=== PATIENT | male | born 1990 | race Caucasian/White ===

== ENCOUNTER 2016-09-20 17:56 | Emergency (ER) | payer SELFPAY ==
--- NOTE | 2016-09-20 20:10 | ER Document Report ---
ED Extremity Problem, Upper - General Mode of Arrival: Ambulatory Information source: Patient TRAVEL OUTSIDE OF THE [place] IN LAST 30 DAYS: No - HPI Onset: Other - see HPI note Associated symptoms: Back pain, Other - shoulder pain Similar symptoms previously: No Recently seen / treated by doctor: No - General Chief Complaint: Shoulder Pain Stated Complaint: LEFT SHOULDER PAIN Notes: Patient is a 26-year-old male presented emergency department for left shoulder pain and back pain. Patient states that he was doing a skateboard trick on his arms went up and had a pop. Patient states that he normally "throws" his arms up during a trick but this time he felt a pop with pain. Patient was given a sling for his arm in triage. Patient states that he also has some back pain throughout his back because he to his back about 6-7 months ago as described. Patient states she had multiple AC separations while he was sleeping in his shoulder. Patient has a history of asthma and takes albuterol occasionally. Patient states he has no primary care physician and has no insurance. (BEN MATIAS) - Related Data Allergies/Adverse Reactions: Penicillins Allergy (Verified 09/20/16 18:09) Past Medical History - General Information source: Patient - Social History Smoking Status: Current Every Day Smoker Chew tobacco use (# tins/day): No Frequency of alcohol use: None Drug Abuse: Marijuana Family History: None Patient has suicidal ideation: No Patient has homicidal ideation: No Pulmonary Medical History: Reports: Hx Asthma Neurological Medical History: Reports: Hx Migraine Past Surgical History: Reports: Hx Adenoidectomy, Hx Orthopedic Surgery - Left finger, Hx Tonsillectomy - and adenoids - Immunizations Immunizations up to date: Yes Hx Diphtheria, Pertussis, Tetanus Vaccination: Yes Review of Systems - Review of Systems Constitutional: No symptoms reported EENT: No symptoms reported Cardiovascular: No symptoms reported Respiratory: No symptoms reported Gastrointestinal: No symptoms reported Genitourinary: No symptoms reported Male Genitourinary: No symptoms reported Musculoskeletal: See HPI Skin: No symptoms reported Hematologic/Lymphatic: No symptoms reported Neurological/Psychological: No symptoms reported -: Yes All other systems reviewed and negative Physical Exam - Vital signs Interpretation: Normal - General General appearance: Appears well, Alert In distress: Mild - HEENT Head: Normocephalic, Atraumatic Eyes: Normal Pupils: PERRL Mucous membranes: Moist - Respiratory Respiratory status: No respiratory distress Chest status: Nontender Breath sounds: Normal Chest palpation: Normal - Cardiovascular Rhythm: Regular Heart sounds: Normal auscultation Murmur: No - Abdominal Inspection: Normal Distension: No distension Bowel sounds: Normal Tenderness: Nontender Organomegaly: No organomegaly - Back Back: Normal, Tender - Paralumbar muscle tenderness - Extremities General upper extremity: Normal inspection, Normal ROM, Normal strength General lower extremity: Normal inspection, Normal ROM, Normal strength - Neurological Neuro grossly intact: Yes Cognition: Normal Orientation: AAOx4 [place] Coma Scale Eye Opening: Spontaneous [place] Coma Scale Verbal: Oriented Sohail Coma Scale Motor: Obeys Commands [place] Coma Scale Total: 15 Speech: Normal - Psychological Associated symptoms: Normal affect, Normal mood - Skin Skin Temperature: Warm Skin Moisture: Dry - Vital signs Vitals: Temp Pulse Resp BP Pulse Ox 98 F 80 16 122/83 100 09/20/16 18:09 09/20/16 18:09 09/20/16 18:09 09/20/16 18:09 09/20/16 18:09 - Neurological Notes: Good reflexes, pulses and sensation (BEN MATIAS) Course - Re-evaluation Re-evalutation: 09/20/16 21:02 Patient presents emergency from a chief plain chronic back pain no new injury says been going on for a year paralumbar muscular skeletal tenderness not midline no loss of bowel or bladder function normal examination. Also says he stretched his arm out on his left shoulder and he feels little bit of pain in that area it's not clinically dislocated he didn't fall or have any associated trauma radial ulnar x-ray median nerve are intact pulses sensation motor intact. Patient has a history of before meals separation without repair. X-rays obtained can go ahead and give him a primary care physician follow-up Tylenol Motrin for discomfort and discussed reasons for ED return sooner (DORITA NAVARRO) - Vital Signs Vital signs: Temp Pulse Resp BP Pulse Ox 98.4 F 78 16 116/85 99 09/20/16 21:23 09/20/16 21:23 09/20/16 21:23 09/20/16 21:23 09/20/16 21:23 Discharge - Discharge Clinical Impression: chronic back pain, left shoulder strain Condition: Stable Disposition: HOME, SELF-CARE Additional Instructions: Chronic Back Pain Chronic back pain (pain persisting longer than three months) is a common problem. A medical evaluation can look for herniated disc, arthritis, osteoporosis, tumors, and infections. But at least half the time, there's no obvious treatable cause. Anxiety and depression tend to worsen back pain. Ibuprofen or other anti-inflammatory medicine can help. A heating pad, used for 15-20 minutes at a time, can ease pain. For this type of back pain, narcotic medicines should be avoided. Muscle relaxers are rarely helpful unless you're having spasms. Activity is important. Find an aerobic exercise program that your back can tolerate. Too much rest makes back pain worse. Specific back exercises are usually prescribed to strengthen the back and abdominal muscles. Often, a physical therapist can help. Avoid heavy lifting, working while bent over, or standing with both knees straight. Most back pain patients do better with a firm mattress. If new symptoms of a "herniated disc" (radiation of pain, numbness, or tingling down the back of the leg or weakness in the leg) occur, you should be re-examined. Shoulder Injury You have injured your shoulder. This usually results from stretching or tearing of the tendons during trauma. Time and protection are required in order to heal properly. Many injuries are quite disabling, and should be taken seriously. Initial treatment includes cold packs and a sling to rest the shoulder. The physician has assessed the seriousness of your injury, and has outlined a treatment plan. Understand that this treatment may change, depending on how you progress. If a re-examination was recommended, it is important that you follow up as instructed. Some shoulder injuries (such as partial tear of the rotator cuff) are only suspected after you've failed to improve. Call us if there's severe pain, numbness, or loss of function. Referrals: [facility] [Provider Group] (call for an appointment to be seen in 3-5 days return for increasing worsening or new symptoms) Scribe Attestation: 09/20/16 21:02 I personally performed the services described in the documentation reviewed the documentation recorded by the scribe in my presence and it accurately incompletely records my words and actions (DORITA NAVARRO) Scribe Documentation - Scribe Written by Akil:: Ben Matias 09/20/16 20:28 acting as scribe for :: Naresh
[2016-09-20] MEDS ORDERED: IBUPROFEN 800 MG TABLET ONE (21:28)
[2016-09-20 21:36] VITALS: BP 116/85
== END 2016-09-20 21:25 | disposition home or self-care (01) ==
LOC: ER 17:56
DX: S46.912A Strain of unspecified muscle, fascia and tendon at shoulder and upper arm level, left arm, initial encounter (principal); X58.XXXA Exposure to other specified factors, initial encounter; Y93.51 Activity, roller skating (inline) and skateboarding; Y92.9 Unspecified place or not applicable; M54.5 Low back pain; M25.512 Pain in left shoulder; J45.909 Unspecified asthma, uncomplicated; Z88.0 Allergy status to penicillin; F17.210 Nicotine dependence, cigarettes, uncomplicated; F12.10 Cannabis abuse, uncomplicated
CPT/HCPCS: 99283

== ENCOUNTER 2016-11-03 17:07 | Emergency (ER) | payer SELFPAY ==
--- NOTE | 2016-11-03 18:42 | ER Document Report ---
ED Psych Disorder / Suicide - General Mode of Arrival: Ambulatory Information source: Patient, Parent TRAVEL OUTSIDE OF THE [place] IN LAST 30 DAYS: No - HPI Patient complains to provider of: Suicidal ideation Onset: Other - Refer to HPI notes Similar symptoms previously: No Recently seen / treated by doctor: No <BEN BERMUDEZ - Last Filed: 11/03/16 21:11> <AIMEE LEMUS - Last Filed: 11/03/16 23:25> - General Chief Complaint: Suicidal Ideation Stated Complaint: PSYCH EVAL Time Seen by Provider: 11/03/16 17:14 Notes: Patient is a 26 year old male presenting to the emergency department for suicidal ideation. Patient has had increased depression and suicidal thoughts. Patient is present with his mother in the room who states he punched the ground. Patient denies any suicidal attempt or plan. Patient states if he did commit suicide he would do "whatever comes naturally." Patient has been drinking EtOH recently. Patient also does marijuana and he states it makes things better for him. Patient also has some nausea. Patient denies taking any new medications. Patient has been seen at a mental hospital before for therapy when he was younger. (BEN BERMUDEZ) - Related Data Allergies/Adverse Reactions: Penicillins Allergy (Verified 11/03/16 17:12) Past Medical History - General Information source: Patient - Social History Smoking Status: Never Smoker Cigarette use (# per day): No Frequency of alcohol use: Occasional Drug Abuse: Marijuana Family History: None Patient has suicidal ideation: Yes Patient has homicidal ideation: No Pulmonary Medical History: Reports: Hx Asthma Neurological Medical History: Reports: Hx Migraine Psychiatric Medical History: Reports: Hx Depression Past Surgical History: Reports: Hx Adenoidectomy, Hx Orthopedic Surgery - Left finger, Hx Tonsillectomy - and adenoids - Immunizations Immunizations up to date: Yes Hx Diphtheria, Pertussis, Tetanus Vaccination: Yes <BEN BERMUDEZ - Last Filed: 11/03/16 21:11> Review of Systems - Review of Systems Constitutional: No symptoms reported EENT: No symptoms reported Cardiovascular: No symptoms reported Respiratory: No symptoms reported Gastrointestinal: No symptoms reported Genitourinary: No symptoms reported Male Genitourinary: No symptoms reported Musculoskeletal: No symptoms reported Skin: No symptoms reported Hematologic/Lymphatic: No symptoms reported Neurological/Psychological: See HPI -: Yes All other systems reviewed and negative <BEN BERMUDEZ - Last Filed: 11/03/16 21:11> Physical Exam - Vital signs Interpretation: Normal - General General appearance: Appears well, Alert - HEENT Head: Normocephalic, Atraumatic Eyes: Normal Pupils: PERRL - Respiratory Respiratory status: No respiratory distress Chest status: Nontender Breath sounds: Normal Chest palpation: Normal - Cardiovascular Rhythm: Regular Heart sounds: Normal auscultation Murmur: No - Abdominal Inspection: Normal Distension: No distension Bowel sounds: Normal Tenderness: Nontender Organomegaly: No organomegaly - Back Back: Normal, Nontender - Extremities General upper extremity: Normal inspection, Nontender, Normal color, Normal ROM , Normal temperature General lower extremity: Normal inspection, Nontender, Normal color, Normal ROM , Normal temperature, Normal weight bearing. No: Noel's sign - Neurological Neuro grossly intact: Yes Cognition: Normal Orientation: AAOx4 Collins Coma Scale Eye Opening: Spontaneous Sohail Coma Scale Verbal: Oriented Sohail Coma Scale Motor: Obeys Commands Collins Coma Scale Total: 15 Speech: Normal Motor strength normal: LUE, RUE, LLE, RLE Sensory: Normal - Psychological Associated symptoms: Other - suicidal, no plan - Skin Skin Temperature: Warm Skin Moisture: Dry Skin Color: Normal <AIMEE LEMUS - Last Filed: 11/03/16 23:25> - Vital signs Vitals: Temp Pulse Resp BP Pulse Ox 98.2 F 73 15 124/94 H 96 11/03/16 17:12 11/03/16 17:12 11/03/16 17:12 11/03/16 17:12 11/03/16 17:12 Course <BEN BERMUDEZ - Last Filed: 11/03/16 21:11> <AIMEE LEMUS - Last Filed: 11/03/16 23:25> - Re-evaluation Re-evalutation: 11/03/16 Patient is a 26-year-old male who comes in stating that he is suicidal but does not have a plan. Patient is medically stable. He has been evaluated by mental health services who feels that the patient has underlying bipolar disorder. Recommend that he be started on Zyprexa twice a day and has been given resources to follow-up with outpatient mental health. Mother will contract for safety. Patient and mother agree with this plan. Stable at this time for discharge. Return immediately if any worsening or concerning symptoms. Understand and agree with plan. (AIMEE LEMUS) - Vital Signs Vital signs: Temp Pulse Resp BP Pulse Ox 98.4 F 75 16 118/84 100 11/03/16 21:14 11/03/16 21:14 11/03/16 21:14 11/03/16 21:14 11/03/16 21:14 Discharge <BEN BERMUDEZ - Last Filed: 11/03/16 21:11> <AIMEE LEMUS - Last Filed: 11/03/16 23:25> - Discharge Clinical Impression: Suicidal ideation Bipolar disorder Qualifiers: Active/Remission status: currently active Current bipolar episode type: mixed Current episode severity: unspecified Qualified Code(s): F31.60 - Bipolar disorder, current episode mixed, unspecified Condition: Stable Disposition: HOME, SELF-CARE Instructions: Bipolar Disorder (OM), Suicidal Ideation (OM) Additional Instructions: Please follow-up with [facility] human services tomorrow. Please return if you have any worsening symptoms or further concerns. Prescriptions: Olanzapine [Zyprexa 2.5 Mg Tablet] 2.5 mg PO BID #14 tablet Forms: Return to Work Scribe Attestation: 11/03/16 23:25 I personally performed the services described in the documentation, reviewed and edited the documentation which was dictated to the scribe in my presence, and it accurately records my words and actions. (AIMEE LEMUS) Scribe Documentation - Scribe Written by Akil:: Akil Seals, 11/03/16 20:59 acting as scribe for :: Akin <BEN BERMUDEZ - Last Filed: 11/03/16 21:11>
[2016-11-03 19:49] LABS: APPEARANCE,URINE CLEAR; BILIRUBIN,URINE NEGATIVE (NEGATIVE); GLUCOSE, URINE NEGATIVE (NEGATIVE); KETONES,URINE NEGATIVE (NEGATIVE); LEUKOCYTE ESTERASE,URINE NEGATIVE (NEGATIVE); NITRITE,URINE NEGATIVE (NEGATIVE); PROTEIN,URINE NEGATIVE (NEGATIVE); URINE SPECIFIC GRAVITY 1.005; UROBILINOGEN,URINE NEGATIVE mg/dL (<2.0)
[2016-11-03 20:03] LABS: URINE BARBITURATES SCREEN NEGATIVE; URINE METHADONE SCREEN NEGATIVE; URINE OPIATES LOW NEGATIVE; URINE PHENCYCLIDINE SCREEN NEGATIVE
[2016-11-03] MEDS ORDERED: OLANZAPINE 2.5 MG TABLET PO ONE (20:33)
[2016-11-03 21:20] VITALS: BP 118/84
--- NOTE | 2016-11-04 09:42 | EKG REPORT ---
SEVERITY:- BORDERLINE ECG - SINUS RHYTHM BORDERLINE T ABNORMALITIES, ANT-LAT LEADS : Confirmed by: Guadalupe Camacho 04-Nov-2016 09:41:56
== END 2016-11-03 21:20 | disposition home or self-care (01) ==
LOC: ER 17:07
DX: F31.60 Bipolar disorder, current episode mixed, unspecified (principal); R45.851 Suicidal ideations; R11.0 Nausea; J45.909 Unspecified asthma, uncomplicated; Z88.0 Allergy status to penicillin
CPT/HCPCS: 93005; 99285; 81001; 80307; 93010; J3490

== ENCOUNTER 2017-06-14 12:50 | Emergency (ER) | payer OTHER ==
[2017-06-14 12:55] VITALS: BP 117/75
--- NOTE | 2017-06-14 13:38 | ER Document Report ---
ED Skin Rash/Insect Bite/Abscs - General Mode of Arrival: Ambulatory Information source: Patient TRAVEL OUTSIDE OF THE [place] IN LAST 30 DAYS: No - General Chief Complaint: Skin Problem Stated Complaint: RIGHT ARM INJURY Time Seen by Provider: 06/14/17 13:35 Notes: Patient is a 26-year-old male that presents to the emergency department today with complaints of bites to his right arm with associated swelling and erythema. 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 Patient states he assumes that there was some sort of insect in the right glove. He does not have any other proctor on his other arm or the rest of his body. Patient states he tried Benadryl with minimal relief. (WILI LOVE) - Related Data Allergies/Adverse Reactions: Penicillins Allergy (Verified 11/03/16 17:12) Past Medical History - General Information source: Patient - Social History Smoking Status: Current Every Day Smoker Cigarette use (# per day): Yes Frequency of alcohol use: None Drug Abuse: None Lives with: Family Family History: Reviewed & Not Pertinent Pulmonary Medical History: Reports: Hx Asthma Neurological Medical History: Reports: Hx Migraine Psychiatric Medical History: Reports: Hx Depression Past Surgical History: Reports: Hx Adenoidectomy, Hx Orthopedic Surgery - Left finger, Hx Tonsillectomy - and adenoids - Immunizations Immunizations up to date: Yes Hx Diphtheria, Pertussis, Tetanus Vaccination: Yes Review of Systems - Review of Systems Constitutional: No symptoms reported EENT: No symptoms reported Cardiovascular: No symptoms reported Respiratory: No symptoms reported Gastrointestinal: No symptoms reported Genitourinary: No symptoms reported Male Genitourinary: No symptoms reported Musculoskeletal: No symptoms reported Skin: See HPI, Rash - right forearm Hematologic/Lymphatic: No symptoms reported Neurological/Psychological: No symptoms reported -: Yes All other systems reviewed and negative Physical Exam - Vital signs Vitals: Temp Pulse Resp BP Pulse Ox 98.1 F 88 14 117/75 98 06/14/17 12:54 06/14/17 12:54 06/14/17 12:54 06/14/17 12:54 06/14/17 12:54 - Notes Notes: Physical Exam: General: Alert, appears well. HEENT: Normocephalic. Atraumatic. PERRLA. Extraocular movements intact. Oropharynx clear. Neck: Supple. Respiratory: No respiratory distress. Abdominal: Normal Inspection. No distension. Extremities: Moves all four extremities. Neurological: Cranial nerves II-XII grossly intact bilaterally. Normal cognition. AAOx4. Normal speech. Psychological: Normal affect. Normal Mood. Skin: 5mm macular papular areas over right forearm with central scabbed area with excoriations. Mild generalized associated erythema. No excessive warmth. No axillary adenopathy. Left arm was not involved. (WILI LOVE) - Vital Signs Vital signs: Temp Pulse Resp BP Pulse Ox 98.1 F 88 14 117/75 98 06/14/17 12:54 06/14/17 12:54 06/14/17 12:54 06/14/17 12:54 06/14/17 12:54 Discharge - Discharge Clinical Impression: Rash and nonspecific skin eruption Condition: Good Disposition: HOME, SELF-CARE Additional Instructions: May use the Atarax for itching if the Benadryl does not seem to be helping. It will probably cause some sedation. Start the prednisone which is the steroid tomorrow. Return for fever, worsening otherwise. Prescriptions: Hydroxyzine HCl [Atarax 25 mg Tablet] 1 - 2 tab PO QID PRN #25 tablet PRN Reason: Prednisone [Deltasone 20 mg Tablet] 2 tab PO DAILY 5 Days #10 tablet Scribe Documentation - Scribe Written by Akil:: Akil Lopez, 06/14/2017 1545 acting as scribe for :: Carolina
[2017-06-14] MEDS ORDERED: PREDNISOLONE SOD PHOS 15 MG/5 ML ORAL SYRING PO ONE (13:41)
[2017-06-14] MEDS ORDERED: PREDNISONE 20 MG TABLET PO ONE (13:46)
== END 2017-06-14 13:52 | disposition home or self-care (01) ==
LOC: ER 12:50
DX: R21 Rash and other nonspecific skin eruption (principal); S49.91XA Unspecified injury of right shoulder and upper arm, initial encounter; M79.89 Other specified soft tissue disorders; W57.XXXA Bitten or stung by nonvenomous insect and other nonvenomous arthropods, initial encounter; F17.210 Nicotine dependence, cigarettes, uncomplicated
CPT/HCPCS: 99283; J7512

== ENCOUNTER 2017-07-18 17:55 | Emergency (ER) | payer SELFPAY ==
[2017-07-18 18:01] VITALS: BP 114/73
[2017-07-18] MEDS ORDERED: FAMOTIDINE 20 MG TABLET PO ONE (18:28)
[2017-07-18] MEDS ORDERED: PREDNISONE 20 MG TABLET PO ONE (18:28)
[2017-07-18] MEDS ORDERED: DIPHENHYDRAMINE HCL 50 MG CAPSULE PO ONE (18:28)
--- NOTE | 2017-07-18 19:10 | ER Document Report ---
ED Skin Rash/Insect Bite/Abscs - General Chief Complaint: Insect Bite Stated Complaint: ARM SWELLING Time Seen by Provider: 07/18/17 18:25 Mode of Arrival: Ambulatory Information source: Patient Notes: Patient is a 26-year-old male who presents to the ER today for redness and swelling to his right forearm after being bitten by something yesterday at work. Patient states that he sometimes has reactions like this whenever he is bitten by insects. He did not see what bit him. He denies any drainage, bleeding, difficulty breathing, feeling of his throat closing up, fevers or chills. TRAVEL OUTSIDE OF THE [place] IN LAST 30 DAYS: No - Related Data Allergies/Adverse Reactions: Penicillins Allergy (Verified 07/18/17 17:59) Past Medical History - General Information source: Patient - Social History Smoking Status: Unknown if Ever Smoked Family History: Reviewed & Not Pertinent Patient has suicidal ideation: No Patient has homicidal ideation: No Pulmonary Medical History: Reports: Hx Asthma Neurological Medical History: Reports: Hx Migraine Renal/ Medical History: Denies: Hx Peritoneal Dialysis Psychiatric Medical History: Reports: Hx Depression Past Surgical History: Reports: Hx Adenoidectomy, Hx Orthopedic Surgery - Left finger, Hx Tonsillectomy - and adenoids - Immunizations Immunizations up to date: Yes Hx Diphtheria, Pertussis, Tetanus Vaccination: Yes Review of Systems - Review of Systems Constitutional: No symptoms reported EENT: No symptoms reported Cardiovascular: No symptoms reported Respiratory: No symptoms reported Gastrointestinal: No symptoms reported Genitourinary: No symptoms reported Male Genitourinary: No symptoms reported Musculoskeletal: No symptoms reported Skin: See HPI Hematologic/Lymphatic: No symptoms reported Neurological/Psychological: No symptoms reported Physical Exam - Vital signs Vitals: Temp Pulse Resp BP Pulse Ox 97.8 F 64 14 114/73 99 07/18/17 18:00 07/18/17 18:00 07/18/17 18:00 07/18/17 18:00 07/18/17 18:00 - Notes Notes: PHYSICAL EXAMINATION: GENERAL: Well-appearing and in no acute distress. HEAD: Atraumatic, normocephalic. EYES: Pupils equal round and reactive to light, extraocular movements intact, sclera anicteric, conjunctiva are normal. ENT: ear canals without erythema or foreign body, TMs pearly hassan with good bony landmarks, nares patent, oropharynx clear without exudates. Moist mucous membranes. Airway patent NECK: Normal range of motion, supple without lymphadenopathy LUNGS: CTAB and equal. No wheezes rales or rhonchi. HEART: Regular rate and rhythm without murmurs EXTREMITIES: Normal range of motion, no pitting edema. No cyanosis. NEUROLOGICAL: Cranial nerves grossly intact. Normal sensory/motor exams. PSYCH: Normal mood, normal affect. SKIN: Warm, Dry, normal turgor, erythema and mild edema to the dorsal right forearm approximately 7 cm x 4 cm in diameter, nontender to palpation, not fluctuant or indurated Course - Re-evaluation Re-evalutation: 07/18/17 19:07 Patient given Benadryl, Pepcid and prednisone here in the emergency department - Vital Signs Vital signs: Temp Pulse Resp BP Pulse Ox 97.8 F 64 14 114/73 99 07/18/17 18:00 07/18/17 18:00 07/18/17 18:00 07/18/17 18:00 07/18/17 18:00 Discharge - Discharge Clinical Impression: Allergy, insect bite Condition: Stable Disposition: HOME, SELF-CARE Additional Instructions: Return immediately for any new or worsening symptoms. Follow up with primary care provider, call tomorrow to make followup appointment. Prescriptions: Prednisone 40 mg PO DAILY #10 tablet Forms: Return to Work
== END 2017-07-18 19:21 | disposition home or self-care (01) ==
LOC: ER 17:55
DX: S50.861A Insect bite (nonvenomous) of right forearm, initial encounter (principal); M79.89 Other specified soft tissue disorders; W57.XXXA Bitten or stung by nonvenomous insect and other nonvenomous arthropods, initial encounter
CPT/HCPCS: 99281; J7512

== ENCOUNTER 2017-12-08 18:23 | Emergency (ER) | payer SELFPAY ==
[2017-12-08 18:32] VITALS: BP 118/86
--- NOTE | 2017-12-08 19:51 | ER Document Report ---
ED General - General Chief Complaint: Hand Injury Stated Complaint: RIGHT HAND PAIN TRAVEL OUTSIDE OF THE [place] IN LAST 30 DAYS: No - HPI Notes: 27-year-old right-handed male presents with right hand injury. Patient indicates that he got angry earlier today punched a wall. Complains of sudden onset severe right hand pain and swelling. Nonradiating. No other modifying factors, no other associated symptoms, no other provocative or palliative factors. Plain films are obtained, there is no evidence of fracture. Discharged home with advice to use ibuprofen and Tylenol, return if worsening. - Related Data Allergies/Adverse Reactions: Penicillins Allergy (Verified 12/08/17 18:26) Past Medical History - Social History Smoking Status: Smoker,Current Status Unk Family History: Reviewed & Not Pertinent - Medical History Medical History: Negative Pulmonary Medical History: Reports: Hx Asthma Neurological Medical History: Reports: Hx Migraine Renal/ Medical History: Denies: Hx Peritoneal Dialysis Psychiatric Medical History: Reports: Hx Depression Past Surgical History: Reports: Hx Adenoidectomy, Hx Orthopedic Surgery - Left finger, Hx Tonsillectomy - and adenoids - Immunizations Immunizations up to date: Yes Hx Diphtheria, Pertussis, Tetanus Vaccination: Yes Review of Systems - Review of Systems Notes: Review of systems as in history of present illness, otherwise no significant headache, chest pain, abdominal pain. Physical Exam - Vital signs Vitals: Temp Pulse Resp BP Pulse Ox 98.8 F 70 16 118/86 H 100 12/08/17 18:30 12/08/17 18:30 12/08/17 18:30 12/08/17 18:30 12/08/17 18:30 - Notes Notes: General: Well devloped, no acute distress. HEENT: Normocephalic, atraumatic. Pupils equal round reactive to light. Mucosa moist. No JVD. Chest: No trauma, normal excursion. Respiratory: Good air exchange, normal excursion. Cardiac: Regular rhythm Abdomen: Soft, benign. Nondistended. Back: No asymmetry or gross abnormality. Motor: Grossly normal power and tone. Neurologic: Alert, nonfocal. Vascular: Well perfused Skin: No petechiae or purpura Extremities: Left dorsal ulnar aspect of the hand is edematous and bruised and tender. Range of motion limited. He is able to appose his thumb and fifth finger Course - Re-evaluation Re-evalutation: 12/08/17 19:49 [id number] male with high risk for boxer's fracture. We will proceed with plain films, reevaluate. - Vital Signs Vital signs: Temp Pulse Resp BP Pulse Ox 98.8 F 70 16 118/86 H 100 12/08/17 18:30 12/08/17 18:30 12/08/17 18:30 12/08/17 18:30 12/08/17 18:30 Discharge - Discharge Clinical Impression: Hand contusion Qualifiers: Encounter type: initial encounter Laterality: right Qualified Code(s): S60.221A - Contusion of right hand, initial encounter Condition: Good Disposition: HOME, SELF-CARE
--- NOTE | 2017-12-08 20:05 | RADIOLOGY REPORT (SQ) ---
EXAM DESCRIPTION: HAND RIGHT 3 VIEWS COMPLETED DATE/TIME: 12/08/2017 7:57 pm REASON FOR STUDY: Trauma punched a table COMPARISON: None. EXAM PARAMETERS: NUMBER OF VIEWS: Three views. TECHNIQUE: AP, lateral and oblique radiographic images acquired of the right hand. LIMITATIONS: None. FINDINGS: MINERALIZATION: Normal. BONES: No acute fracture or dislocation. No worrisome bone lesions. JOINTS: No effusions. SOFT TISSUES: Dorsal soft tissue swelling. OTHER: No other significant finding. IMPRESSION: Soft tissue swelling. No acute fracture. TECHNICAL DOCUMENTATION: JOB ID: [id number] [employer]- All Rights Reserved Reading location - IP/workstation name: [email or web address]
== END 2017-12-08 20:34 | disposition home or self-care (01) ==
LOC: ER 18:23
DX: S60.221A Contusion of right hand, initial encounter (principal); W22.01XA Walked into wall, initial encounter; W22.03XA Walked into furniture, initial encounter; Z88.0 Allergy status to penicillin; J45.909 Unspecified asthma, uncomplicated
CPT/HCPCS: 99283

== ENCOUNTER 2018-03-04 15:55 | Emergency (ER) | payer SELFPAY ==
[2018-03-04] MEDS ORDERED: ONDANSETRON 4 MG TAB.RAPDIS PO ONE (16:25)
[2018-03-04] MEDS ORDERED: METOCLOPRAMIDE HCL ORAL SOLN 10 MG/10 ML UDCUP PO ONE (17:00)
[2018-03-04] MEDS ORDERED: MAG HYDROX/AL HYDROX/SIMETH SUSP 30 ML UDCUP PO ONE (17:00)
[2018-03-04] MEDS ORDERED: LIDOCAINE 2% VISCOUS SOLN 20 ML UDCUP PO ONE (17:00)
--- NOTE | 2018-03-04 17:29 | ER Document Report ---
ED Medical Screen (RME) - General Chief Complaint: Vomiting Stated Complaint: VOMITING, NAUSEA Time Seen by Provider: 03/04/18 16:08 TRAVEL OUTSIDE OF THE [place] IN LAST 30 DAYS: No - HPI Patient complains to provider of: Vomiting Onset: Other - 27-year-old without significant past medical history presents for recurrent vomiting and abdominal pain in the left upper quadrant. Is never had anything like this in the past. Is been smoking cannabis to try and help with his symptoms which does offer some relief. Denies fevers or chills pain elsewhere diarrhea or other symptoms. - Related Data Allergies/Adverse Reactions: Penicillins Allergy (Verified 03/04/18 16:10) Past Medical History - Social History Chew tobacco use (# tins/day): No Frequency of alcohol use: Occasional Drug Abuse: Marijuana Pulmonary Medical History: Reports: Hx Asthma Neurological Medical History: Reports: Hx Migraine Renal/ Medical History: Denies: Hx Peritoneal Dialysis Psychiatric Medical History: Reports: Hx Depression Past Surgical History: Reports: Hx Adenoidectomy, Hx Orthopedic Surgery - Left finger, Hx Tonsillectomy - and adenoids - Immunizations Immunizations up to date: Yes Hx Diphtheria, Pertussis, Tetanus Vaccination: Yes Physical Exam - Vital signs Vitals: Temp Pulse Resp BP Pulse Ox 97.7 F 68 16 127/75 H 100 03/04/18 16:01 03/04/18 16:01 03/04/18 16:01 03/04/18 16:01 03/04/18 16:01 Course - Re-evaluation Re-evalutation: 03/04/18 17:28 This 27-year-old man has a benign abdominal examination. He is got pain in the left upper quadrant. Given that he has had recurrent vomiting will attempt administration of antiemetic followed by administration of GI cocktail as he likely has gastritis and reflux gastritis as a result of his vomiting. We will defer to secondary provider pending p.o. challenge.I performed a rapid medical screening examination on this patient will defer further disposition determination workup and labs to next provider. - Vital Signs Vital signs: Temp Pulse Resp BP Pulse Ox 97.7 F 68 16 127/75 H 100 03/04/18 16:01 03/04/18 16:01 03/04/18 16:01 03/04/18 16:01 03/04/18 16:01
--- NOTE | 2018-03-04 17:33 | ER Document Report ---
HPI - HPI Patient complains to provider of: vomiting and diarrrhea Onset: Yesterday Onset/Duration: Gradual Quality of pain: Cramping Pain Level: 4 Context: Patient presents complaining of nausea and vomiting diarrhea that started yesterday. Patient states he is vomited once today and had diarrhea x2 episodes. Patient does complain of generalized abdominal cramping. Patient denies any fever. Patient reports multiple family members in the household with similar symptoms. Associated Symptoms: Diarrhea, Nausea, Vomiting. denies: Nonproductive cough, Productive cough, Fever Exacerbated by: Denies Relieved by: Denies Similar symptoms previously: No Recently seen / treated by doctor: No - ROS ROS below otherwise negative: Yes Systems Reviewed and Negative: Yes All other systems reviewed and negative - CONSTITUTIONAL Constitutional: DENIES: Fever, Chills - NEURO Neurology: DENIES: Headache - GASTROINTESTINAL Gastrointestinal: REPORTS: Abdominal Pain, Nausea, Patient vomiting, Diarrhea. DENIES: Constipation, Black / Bloody Stools - URINARY Urinary: DENIES: Dysuria - DERM Skin Color: Normal, [place] Skin Problems: None Past Medical History - General Information source: Patient - Social History Smoking Status: Current Every Day Smoker Chew tobacco use (# tins/day): No Smoking Education Provided: Yes Frequency of alcohol use: Occasional Drug Abuse: Marijuana Occupation: Foodservice Lives with: Family Family History: Reviewed & Not Pertinent Patient has suicidal ideation: No Patient has homicidal ideation: No Pulmonary Medical History: Reports: Hx Asthma Neurological Medical History: Reports: Hx Migraine Renal/ Medical History: Denies: Hx Peritoneal Dialysis Psychiatric Medical History: Reports: Hx Depression Past Surgical History: Reports: Hx Adenoidectomy, Hx Orthopedic Surgery - Left finger, Hx Tonsillectomy - and adenoids - Immunizations Immunizations up to date: Yes Hx Diphtheria, Pertussis, Tetanus Vaccination: Yes Vertical Provider Document - CONSTITUTIONAL Agree With Documented VS: Yes Exam Limitations: No Limitations General Appearance: WD/WN, No Apparent Distress - INFECTION CONTROL TRAVEL OUTSIDE OF THE [place] IN LAST 30 DAYS: No - HEENT HEENT: Atraumatic, Normocephalic - NECK Neck: Normal Inspection, Supple. negative: Lymphadenopathy-Left, Lymphadenopathy-Right - RESPIRATORY Respiratory: Breath Sounds Normal, No Respiratory Distress, Chest Non-Tender. negative: Rhonchi, Wheezing - CARDIOVASCULAR Cardiovascular: Regular Rate, Regular Rhythm, No Murmur - GI/ABDOMEN Gastrointestinal: Abdomen Soft, Abdomen Tender - LUQ, No Organomegaly, Normal Bowel Sounds - BACK Back: Normal Inspection. negative: CVA Tenderness-Right, CVA Tenderness-Left - MUSCULOSKELETAL/EXTREMETIES Musculoskeletal/Extremeties: MAEW, FROM, Non-Tender - NEURO Level of Consciousness: Awake, Alert, Appropriate Motor/Sensory: No Motor Deficit - DERM Integumentary: Warm, Dry, No Rash Course - Re-evaluation Re-evalutation: 03/04/18 18:12 Patient reports nausea is improved after medication. Patient tolerating oral fluids. Patient nontoxic in appearance. Patient does report multiple family members with similar symptoms at home. Patient presents with abdominal pain without signs of peritonitis or other life-threatening or serious etiology. Patient appears stable for discharge and has been instructed to return immediately if the symptoms worsen in any way, or in 8-12 hours if not improved for reevaluation. The patient has been instructed to return if the symptoms worsen or change in any way. - Vital Signs Vital signs: Temp Pulse Resp BP Pulse Ox 97.7 F 68 16 127/75 H 100 03/04/18 16:01 03/04/18 16:01 03/04/18 16:01 03/04/18 16:01 03/04/18 16:01 Discharge - Discharge Clinical Impression: Nausea vomiting and diarrhea Condition: Stable Disposition: HOME, SELF-CARE Instructions: Antinausea Medication ([facility]), Diarrhea, Nonspecific ([facility]), Vomiting ([facility]) Additional Instructions: Return immediately for any new or worsening symptoms Followup with your primary care provider, call tomorrow to make a followup appointment Prescriptions: Ondansetron HCl [Zofran 4 mg Tablet] 1 - 2 tab PO Q6 PRN #12 tablet PRN Reason: Forms: Smoking Cessation Education, Return to Work Referrals: [facility] [Provider Group] - Follow up as needed
[2018-03-04 18:25] VITALS: BP 125/70
== END 2018-03-04 18:24 | disposition home or self-care (01) ==
LOC: ER 15:55
DX: R11.2 Nausea with vomiting, unspecified (principal); R19.7 Diarrhea, unspecified; R10.84 Generalized abdominal pain; F17.200 Nicotine dependence, unspecified, uncomplicated
CPT/HCPCS: 99283; S0119; J3490

== ENCOUNTER 2018-05-06 20:11 | Emergency (ER) | payer SELFPAY ==
--- NOTE | 2018-05-06 21:03 | EKG REPORT ---
SEVERITY:- BORDERLINE ECG - WANDERING ATRIAL PACEMAKER : Confirmed by: Kelli Machuca MD 06-May-2018 21:01:31
[2018-05-06 21:33] LABS: ABSOLUTE BASOPHILS # (AUTO) 0.1 10^3/uL (0.0-0.2); ABSOLUTE MONOCYTES (AUTO) 0.5 10^3/uL (0.1-1.4); ABSOLUTE NEUT (AUTO) 4.8 10^3/uL (1.7-8.2); BASOPHILS % (AUTO) 0.7 % (0-2); EOSINOPHILS % (AUTO) 0.3 % (0-6); HEMATOCRIT 46.2 % (37.9-51.0); HEMOGLOBIN 15.9 g/dL (13.5-17.0); MEAN CORPUSCULAR HEMOGLOBIN 32.4 pg (27.0-33.4); MEAN CORPUSCULAR HGB CONC 34.5 g/dL (32.0-36.0); MEAN CORPUSCULAR VOLUME 94 fl (80-97); MONOCYTES % (AUTO) 5.5 % (3-13); PLATELET COUNT 167 10^3/uL (150-450); RED BLOOD COUNT 4.93 10^6/uL (4.35-5.55); RED CELL DISTRIBUTION WIDTH 13.5 % (11.5-14.0); SEGMENTED NEUTROPHILS % (AUTO) 57.5 % (42-78); TOTAL CELLS COUNTED % (AUTO) 100 %; WHITE BLOOD COUNT 8.3 10^3/uL (4.0-10.5)
--- NOTE | 2018-05-06 21:39 | ER Document Report ---
ED Syncope and Near Syncope - General Chief Complaint: Passed Out Prior to Arrival Stated Complaint: PASSING OUT Time Seen by Provider: 05/06/18 21:10 Notes: This is a 27-year-old male history of anxiety who was making pizzas at [employer] when he felt like he was about to pass out. States that he was taking some big deep breaths. Began having numbness to his face and extremities. Laid down on the ground. Thinks that he may have blacked out. Feels better at this time. Ambulance was called. Patient brought here for evaluation. No symptoms at this time. TRAVEL OUTSIDE OF THE [place] IN LAST 30 DAYS: No - HPI Patient complains to provider of: Nearly fainting Episode witnessed (by whom): Yes Symptoms prior to episode: Dizziness Position/Activity at time of episode: Standing Quality of pain: No pain Severity: Moderate Pain Level: Denies Context: Almost passed out - Related Data Allergies/Adverse Reactions: Penicillins Allergy (Verified 03/04/18 16:10) Past Medical History - General Information source: Patient - Social History Smoking Status: Current Some Day Smoker Frequency of alcohol use: None Drug Abuse: None Lives with: Parents Family History: Reviewed & Not Pertinent - Medical History Medical History: Negative Pulmonary Medical History: Reports: Hx Asthma Neurological Medical History: Reports: Hx Migraine Renal/ Medical History: Denies: Hx Peritoneal Dialysis Psychiatric Medical History: Reports: Hx Depression Past Surgical History: Reports: Hx Adenoidectomy, Hx Orthopedic Surgery - Left finger, Hx Tonsillectomy - and adenoids - Immunizations Immunizations up to date: Yes Hx Diphtheria, Pertussis, Tetanus Vaccination: Yes Review of Systems - Review of Systems Notes: Constitutional: denies: Chills, Diaphoresis, Fever, Malaise, Weakness EENT: denies: Eye discharge, Blurred vision, Tearing, Double vision, Nose congestion, Nose discharge, Throat swelling, Mouth pain Cardiovascular: denies: Palpitations, Heart racing, Orthopnea, Dyspnea, Chest pain Respiratory: denies: Cough, Hurts to breathe, Wheezing, Shortness of breath Gastrointestinal: denies: Abdominal pain, Diarrhea, Nausea, Vomiting, Black stools, bright red blood in stool Genitourinary: denies: Burning, Dysuria, Discharge, Frequency, Flank pain, Hematuria Musculoskeletal: denies: Joint pain, Joint swelling, Muscle pain, Muscle stiffness, back pain Hematologic/Lymphatic: denies: Anemia, Easy bleeding, Easy bruising, Blood clots Neurological/Psychological: denies: Confusion, Dementia, Depression, Loss of consciousness. Did complain of paresthesias and numbness to the hands and face with dizziness Skin: No lesions, no masses, no skin breakdown, no abscesses Physical Exam - Vital signs Vitals: Resp Pulse Ox 11 L 100 05/06/18 20:55 05/06/18 20:55 Interpretation: Normal - General General appearance: Appears well, Alert - HEENT Head: Normocephalic, Atraumatic Eyes: Normal Pupils: PERRL - Respiratory Respiratory status: No respiratory distress Chest status: Nontender Breath sounds: Normal Chest palpation: Normal - Cardiovascular Rhythm: Regular Heart sounds: Normal auscultation Murmur: No - Abdominal Inspection: Normal Distension: No distension Bowel sounds: Normal Tenderness: Nontender Organomegaly: No organomegaly - Back Back: Normal, Nontender - Extremities General upper extremity: Normal inspection, Nontender, Normal color, Normal ROM , Normal temperature General lower extremity: Normal inspection, Nontender, Normal color, Normal ROM , Normal temperature, Normal weight bearing. No: Noel's sign - Neurological Neuro grossly intact: Yes Cognition: Normal Orientation: AAOx4 [place] Coma Scale Eye Opening: Spontaneous [place] Coma Scale Verbal: Oriented [place] Coma Scale Motor: Obeys Commands [place] Coma Scale Total: 15 Speech: Normal Motor strength normal: LUE, RUE, LLE, RLE Sensory: Normal - Psychological Associated symptoms: Normal affect, Normal mood - Skin Skin Temperature: Warm Skin Moisture: Dry Skin Color: Normal Course - Re-evaluation Re-evalutation: 05/07/18 00:49 Labs are unremarkable. No evidence of PR. Patient does have a sinus arrhythmia related to his breathing. I have explained to him that more likely this represents a hyperventilatory syndrome with his carpopedal spasms as he describes as well as perioral paresthesias. Patient seems comfortable with this plan. I have given him follow-up information for licensing engineer. We will discharge him at this time in stable condition. - Vital Signs Vital signs: Temp Pulse Resp BP Pulse Ox 14 107/68 99 05/06/18 23:33 05/06/18 23:33 05/06/18 23:33 - Laboratory Result Diagrams: 05/06/18 19:33 05/06/18 19:33 Laboratory results interpreted by me: 05/06/18 19:33 Potassium 3.2 L Glucose 121 H ALT 20 L Total Protein 8.5 H Albumin 5.1 H - EKG Interpretation by Me EKG shows normal: Sinus rhythm, [place], Intervals, QRS Complexes, ST-T Waves Discharge - Discharge Clinical Impression: Syncope, near, Sinus arrhythmia seen on electrocardiogram Condition: Good Disposition: HOME, SELF-CARE Instructions: Hyperventilation ([facility]), Near Syncopal Episode ([facility]) Additional Instructions: Please make an appointment follow-up with licensing engineer for further evaluation and treatment. Return for any worsening symptoms or concerns. Forms: Return to Work Referrals: DEBORAH MARIN MD [ACTIVE STAFF] - Follow up in 1 week
[2018-05-06 21:42] LABS: ALANINE AMINOTRANSFERASE 20 U/L (21-72); ALBUMIN 5.1 g/dL (3.5-5.0); ALKALINE PHOSPHATASE 86 U/L (38-126); ANION GAP 17 (5-19); ASPARTATE AMINO TRANSFERASE 31 U/L (17-59); BILIRUBIN,DIRECT 0.2 mg/dL (0.0-0.4); BILIRUBIN,TOTAL 0.9 mg/dL (0.2-1.3); BLOOD UREA NITROGEN 12 mg/dL (7-20); CARBON DIOXIDE 23 mmol/L (22-30); CHLORIDE 100 mmol/L (98-107); GLUCOSE 121 mg/dL (75-110); POTASSIUM 3.2 mmol/L (3.6-5.0); SODIUM 140.1 mmol/L (137-145); TOTAL PROTEIN 8.5 g/dL (6.3-8.2)
[2018-05-06 23:51] VITALS: BP 107/68
== END 2018-05-06 23:51 | disposition home or self-care (01) ==
LOC: ER 20:11
DX: R55 Syncope and collapse (principal); I49.9 Cardiac arrhythmia, unspecified; R20.0 Anesthesia of skin; J45.909 Unspecified asthma, uncomplicated; F17.200 Nicotine dependence, unspecified, uncomplicated
CPT/HCPCS: 36415; 80053; 84484; 85025; 93005; 93010; 99284

== ENCOUNTER 2020-06-07 09:22 | Emergency (ER) | payer SELFPAY ==
[2020-06-07 09:29] VITALS: BP 118/85
[2020-06-07] MEDS ORDERED: LIDOCAINE 2% VISCOUS SOLN 15 ML UDCUP PO ONE (10:58)
--- NOTE | 2020-06-07 10:58 | ER Document Report ---
ED Oral Problem - General Chief Complaint: Dental Injury Stated Complaint: TOOTHACHE Mode of Arrival: Ambulatory Information source: Patient Notes: 06/07/20 09:47 - [id number] 1990 Patient Age: 29 pt reports he has been experiencing intermittent swelling in left side of jaw for the past few weeks. pt does not have dental insurance and waited to see if it would resolve on its own. Left lower swelling in jaw noted. NADN breathing e/u. denies travel or covid exposure. pain in left jaw 4/5. intermittent. MY NOTES 29-year-old male arrives with chief complaint of several weeks of left jaw pain from dental abscesses. He works at [employer] and has not tried any pain medicine or antibiotics for his dental caries. He has not seen a dentist for his problem as yet. Patient denies any fever chills cough cold but does adm it to hot and cold sensitivity to his left molars. He denies any earache or nuchal rigidity . He reports he has a heart rhythm problem but no murmurs. Quick auscultation of his chest reveals no obvious heart murmurs. He has no lesions in his fingers or legs or feet. TRAVEL OUTSIDE OF THE [place] IN LAST 30 DAYS: No - HPI Patient complains to provider of: Jaw pain, Swelling of face, Swelling of jaw, Toothache. No: Foreign body, Sore throat Onset: Last week - But progressive over 2 months Quality of pain: Achy, Fullness, Pressure, Stabbing, Throbbing. denies: Burning, Cramping, Dull, Sharp Severity: Moderate Pain Level: 2 Context: Fractured tooth, Other - Abscess left lower molars x2. denies: Recent antibiotic use, Recent dental extractions, Recent yeast infection Associated symptoms: Decreased appetite, Dental decay, Facial pain, Jaw pain, Toothache. denies: Chills, Cough, Difficulty speaking, Drainage, Drooling, Earache, Fever, Headache, Short of breath, Sweaty, Tongue swelling, Unable to swallow, White patches in mouth Worsened by: Cold Similar symptoms previously: No Recently seen / treated by doctor/dentist: No - Related Data Allergies/Adverse Reactions: Penicillins Allergy (Verified 06/07/20 10:03) Past Medical History - Social History Smoking Status: Current Every Day Smoker Cigarette use (# per day): Yes - Around 3/4 pack/day Chew tobacco use (# tins/day): No Smoking Education Provided: Yes Frequency of alcohol use: Occasional - Drinks occasionally alcohol Drug Abuse: Marijuana Lives with: Family Family History: Reviewed & Not Pertinent Patient has suicidal ideation: No Patient has homicidal ideation: No Pulmonary Medical History: Reports: Hx Asthma Neurological Medical History: Reports: Hx Migraine Renal/ Medical History: Denies: Hx Peritoneal Dialysis Psychiatric Medical History: Reports: Hx Depression Past Surgical History: Reports: Hx Adenoidectomy, Hx Orthopedic Surgery - Left finger, Hx Tonsillectomy - and adenoids - Immunizations Immunizations up to date: Yes Hx Diphtheria, Pertussis, Tetanus Vaccination: Yes Review of Systems - Review of Systems Constitutional: See HPI, Recent illness EENT: See HPI, Mouth pain, Mouth swelling, Dental problem, Other - Left dentalgia and jaw pain with swelling Cardiovascular: No symptoms reported Respiratory: No symptoms reported Gastrointestinal: No symptoms reported Genitourinary: No symptoms reported Male Genitourinary: No symptoms reported Musculoskeletal: No symptoms reported Skin: No symptoms reported Hematologic/Lymphatic: No symptoms reported Neurological/Psychological: No symptoms reported Physical Exam - Vital signs Vitals: Temp Pulse Resp BP Pulse Ox 98.1 F 78 16 118/85 97 06/07/20 09:28 06/07/20 09:28 06/07/20 09:28 06/07/20 09:28 06/07/20 09:28 Interpretation: Normal - General General appearance: Appears well, Alert - HEENT Head: Normocephalic, Atraumatic Eyes: Normal Conjunctiva: Normal Cornea: Normal Eyelashes: Normal Pupils: PERRL Ears: Normal Sinus: Normal Nasal: Normal Mucous membranes: Normal Teeth diagram: 1 - abscessed 2 - abscessed Pharynx: Other - Left jaw pain and swelling especially around angle of left jaw. Neck: Normal - Respiratory Respiratory status: No respiratory distress Chest status: Nontender Breath sounds: Normal Chest palpation: Normal - Cardiovascular Rhythm: Regular Heart sounds: Normal auscultation Murmur: No - Abdominal Inspection: Normal Distension: No distension Bowel sounds: Normal Tenderness: Nontender Organomegaly: No organomegaly - Rectal Prostate: Other - Deferred - Genitourinary Scrotum: Other - Deferred - Back Back: Normal, Nontender - Extremities General upper extremity: Normal inspection, Nontender, Normal color, Normal ROM, Normal temperature General lower extremity: Normal inspection, Nontender, Normal color, Normal ROM, Normal temperature, Normal weight bearing. No: Noel's sign - Neurological Neuro grossly intact: Yes Cognition: Normal Orientation: AAOx4 [place] Coma Scale Eye Opening: Spontaneous [place] Coma Scale Verbal: Oriented [place] Coma Scale Motor: Obeys Commands [place] Coma Scale Total: 15 Speech: Normal Motor strength normal: LUE, RUE, LLE, RLE Sensory: Normal - Psychological Associated symptoms: Normal affect, Normal mood - Skin Skin Temperature: Warm Skin Moisture: Dry Skin Color: Normal Course - Vital Signs Vital signs: Temp Pulse Resp BP Pulse Ox 98.1 F 78 16 118/85 97 06/07/20 09:28 06/07/20 09:28 06/07/20 09:28 06/07/20 09:28 06/07/20 09:28 - Laboratory Results Critical Laboratory Results Reviewed: No Critical Results Attending or Supervising Physician who Reviewed Labs: MARYANN KATE JR - Radiology Results Critical Radiology Results Reviewed: No Critical Results Attending or Supervising Physician who Reviewed Radiology: MARYANN KATE JR Critical Care Note - Critical Care Note Comments: Patient was written for Keflex 500 twice a day as well as patient being given IM shot of Rocephin here 1 g and viscous lidocaine to be used topically every 1-4 hours. And also he was provided [place] pack Discharge - Discharge Clinical Impression: Cellulitis of jaw, left, Dental caries Condition: Stable Disposition: HOME, SELF-CARE Instructions: Clindamycin ([facility]), Toothache ([facility]) Additional Instructions: Follow-up with dentist as soon as possible. Return to ER as needed use only lukewarm fluids for your dental abscesses. Avoid any carbonated sodas especially Pepsi Coca-Cola Or Dr. Jarrell with phosphoric acid in it. Make sure you take your antibiotics as directed. May use Listerine sensitivity as swish and spits. Prescriptions: Clindamycin HCl [Cleocin 150 mg Capsule] 150 mg PO BID #14 Forms: Return to Work
[2020-06-07] MEDS ORDERED: CEFTRIAXONE INJ 1000 MG VIAL IM ONE (10:59)
[2020-06-07] MEDS ORDERED: HYDROCODONE/ACETAMINOPHEN 5-325 MG (6 TAB/ER DISP) PO PRN (10:59)
[2020-06-07] MEDS ORDERED: LIDOCAINE 1% INJ (10 MG/ML) 10 ML MDV ONE (11:06)
== END 2020-06-07 11:30 | disposition home or self-care (01) ==
LOC: ER 09:22
DX: L03.211 Cellulitis of face (principal); K04.7 Periapical abscess without sinus; K02.9 Dental caries, unspecified; R63.0 Anorexia; F12.10 Cannabis abuse, uncomplicated; F17.210 Nicotine dependence, cigarettes, uncomplicated; J45.909 Unspecified asthma, uncomplicated; Z88.0 Allergy status to penicillin
CPT/HCPCS: 99284; 96372; J3490; J0696